=== PATIENT | male | born 1960 ===

== ENCOUNTER 2017-12-11 16:18 | Emergency (ER) | payer OTHER ==
[2017-12-11 16:22] VITALS: BP 153/90; PULSE 95; RESP 18; TEMP 98.2; O2SAT 97; BMI 28.8
--- NOTE | 2017-12-11 17:10 | C.PDOC ---
History Of Present Illness <Pamelaaustin AYERSBoyd - Last Filed: 12/11/17 18:25> <Vijaya Barnhart - Last Filed: 12/11/17 18:36> 57 year old male presents to the emergency department complaining of right neck pain for the past two weeks. Patient reports pain to radiate to the right side of the neck and down to the right shoulder and arm. States that pain has been on and off since the neck fusion and has worsened in the last 2 weeks. Denies any recent fall or trauma. PMD: Dr. Mathew Corral (Vijaya Barnhart) <Breannajerrod AYERSBoyd Last Filed: 12/11/17 18:25> History Per: Patient History/Exam Limitations: no limitations Onset/Duration Of Symptoms: Days (x2 weeks) Current Symptoms Are (Timing): Still Present Quality: "Pain" <Vijaya Barnhart - Last Filed: 12/11/17 18:36> Time Seen by Provider: 12/11/17 16:43 Chief Complaint (Nursing): Upper Extremity Problem/Injury Past Medical History Other Surgeries: Neck Fusion <Breannajerrod AYERSBoyd Last Filed: 12/11/17 18:25> Reviewed: Historical Data, Nursing Documentation, Vital Signs - Medical History PMH: Back Problems, HTN Family History: States: Unknown Family Hx - Social History Hx Tobacco Use: No Hx Alcohol Use: No Hx Substance Use: No - Immunization History Hx Tetanus Toxoid Vaccination: No Hx Influenza Vaccination: No Hx Pneumococcal Vaccination: No <Vijaya Barnhart - Last Filed: 12/11/17 18:36> Vital Signs: Last Vital Signs Temp 98.2 F 12/11/17 16:22 Pulse 95 H 12/11/17 16:22 Resp 18 12/11/17 16:22 BP 153/90 H 12/11/17 16:22 Pulse Ox 97 12/11/17 18:25 Review Of Systems Except As Marked, All Systems Reviewed And Found Negative. Musculoskeletal: Positive for: Neck Pain, Shoulder Pain, Arm Pain <Vijaya Barnhart - Last Filed: 12/11/17 18:36> Physical Exam - Physical Exam Eye(s): bilateral: Normal Inspection, PERRL, EOMI <Boyd Church DO Last Filed: 12/11/17 18:25> - Physical Exam Appears: Non-toxic, No Acute Distress Skin: Normal Color, Other (Well healed scar post neck fusion) Head: Atraumatic, Normacephalic Eye(s): bilateral: Normal Inspection, PERRL, EOMI Nose: Normal Throat: Normal Neck: Normal ROM (Full ROM with pain), Paracervical Tenderness (Muscle spasms in the right paracervical region) Cardiovascular: Rhythm Regular, No Murmur Respiratory: Normal Breath Sounds, No Accessory Muscle Use, No Wheezing Gastrointestinal/Abdominal: Normal Exam, No Tenderness, No Distention Back: Normal Inspection Extremity: Normal ROM Neurological/Psych: Oriented x3 <Vijaya Barnhart - Last Filed: 12/11/17 18:36> ED Course And Treatment O2 Sat by Pulse Oximetry: 97 (RA) Pulse Ox Interpretation: Normal Reassessment Condition: Improved <Vijaya Barnhart - Last Filed: 12/11/17 18:36> Medical Decision Making <Boyd Church DO - Last Filed: 12/11/17 18:25> <Vijaya Barnhart - Last Filed: 12/11/17 18:36> Medical Decision Making: Time: 17:09 Initial Plan: --Flexeril 10 mg PO --Toradol 60 mg IM Symptoms improve upon administering Flexeril and Toradol per os. Discharge Time: 17:19 Upon reevaluation, patient is feeling better and was discharged home. Patient was advised to follow up with a primary medical doctor. (Vijaya Barnhart) Disposition <Boyd Church DO - Last Filed: 12/11/17 18:25> Counseled Patient/Family Regarding: Studies Performed, Diagnosis, Need For Followup - Disposition Disposition Time: 17:10 <Vijaya Barnhart - Last Filed: 12/11/17 18:36> - Disposition Referrals: Mathew Corral MD [Staff Provider] - Disposition: HOME/ ROUTINE Condition: STABLE Additional Instructions: FOLLOW UP WITH PMD FOR RE-EVALUATION AND POSSIBLE PHYSICAL THERAPY REFERRAL. IF SYMPTOMS GET WORSE OR ANY NEW CONCERNING SYMPTOMS DEVELOP RETURN TO ED. Prescriptions: Cyclobenzaprine [Cyclobenzaprine HCl] 10 mg PO TID PRN #30 tab PRN Reason: Muscle Spasm Ibuprofen [Motrin Tab] 1 tab PO Q6H PRN #15 tab PRN Reason: Pain, Moderate (4-7) Instructions: Cervical Sprain (ED) Forms: [facility] (Maldivian), Gen Discharge Inst Cook Islander Print Language: VIETNAMESE - Clinical Impression Clinical Impression: Neck pain on right side <Boyd Church DO - Last Filed: 12/11/17 18:25> - Scribe Statement The provider has reviewed the documentation as recorded by the Scribe <Vijaya Barnhart - Last Filed: 12/11/17 18:36> - Scribe Statement Naya Robles All medical record entries made by the Scribe were at my direction and personally dictated by me. I have reviewed the chart and agree that the record accurately reflects my personal performance of the history, physical exam, medical decision making, and the department course for this patient. I have also personally directed, reviewed, and agree with the discharge instructions and disposition. (Vijaya Barnhart)
== END 2017-12-11 17:20 | disposition home or self-care (01) ==
LOC: C.ER 16:18
DX: M54.2 Cervicalgia (principal)
CPT/HCPCS: 96372; 99285; J1885